=== PATIENT | male | born 1980 | race African-American/Black ===

== ENCOUNTER 2021-12-08 17:30 | Emergency (ER) | payer OTHER ==
[2021-12-08] MEDS ORDERED: ONDANSETRON 4 MG/2 ML VIAL ONE (17:52)
[2021-12-08] MEDS ORDERED: MORPHINE 4 MG/ML SYR ONE (17:52)
[2021-12-08 18:06] LABS: Absolute Lymphocytes (CBC) 2.3 K/uL (0.7-4.9); Hematocrit 45.5 % (39.6-49.0); Lymphocytes % 30.3 % (15.3-44.8); MCV 86.3 fL (80-100); MPV 8.4 fL (7.6-11.3); RBC Red Blood Cell Count 5.28 M/uL (4.33-5.43)
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
[2021-12-08 18:12] LABS: Potassium 3.6 mmol/L (3.5-5.1)
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
[2021-12-10 14:37] VITALS: BP 131/89; O2SAT 99
== END 2021-12-08 19:28 | disposition home or self-care (01) ==
LOC: ER 17:30
DX: S80.812A Abrasion, left lower leg, initial encounter (principal); S80.811A Abrasion, right lower leg, initial encounter; S50.02XA Contusion of left elbow, initial encounter; V29.40XA Motorcycle driver injured in collision with unspecified motor vehicles in traffic accident, initial encounter; F17.210 Nicotine dependence, cigarettes, uncomplicated
CPT/HCPCS: 85025; 80048; 36415; 82565; 70450; 72125; 71260; 74177; 73080; 73562 ×2; 96375; 96374; 99284; Q9967; J2405